=== PATIENT | female | born 1990 | race African-American/Black ===

== ENCOUNTER 2020-10-07 16:20 | Outpatient (CLI) | payer OTHER | END 2020-10-07 21:35 | disposition home or self-care (01) | LOC: RAD 16:20 | PROVIDERS: ATTEND Family Medicine | DX: M25.562 Pain in left knee (principal); W19.XXXA Unspecified fall, initial encounter ==

== ENCOUNTER 2021-01-20 10:36 | Outpatient (CLI) | payer OTHER | END 2021-01-20 23:32 | disposition home or self-care (01) | LOC: LAB 10:36 | PROVIDERS: ATTEND Family Medicine | DX: U07.1 COVID-19 (principal); R05 Cough; R50.9 Fever, unspecified; R11.2 Nausea with vomiting, unspecified; Z11.52 Encounter for screening for COVID-19 | CPT/HCPCS: 87635; G2023; U0003 ==

== ENCOUNTER 2021-01-21 20:35 | Emergency (ER) | payer OTHER ==
[~2021-01-21] VITALS: Ht 160 cm; Wt 72.6 kg
[2021-01-21 20:48] VITALS: TEMP 98.9
[2021-01-21 22:06] LABS: PLATELET COUNT 183 K/uL (152-353)
[2021-01-21 22:11] LABS: POTASSIUM 3.7 mmol/L (3.6-5.2); SODIUM 138 mmol/L (136-145)
[2021-01-21 22:26] LABS: PARTIAL THROMBOPLASTIN TIME 30.5 SECONDS (24.5-33.6)
[2021-01-22 01:52] VITALS: BP 118/75
== END 2021-01-22 01:52 | disposition home or self-care (01) ==
LOC: ED 20:35
PROVIDERS: Emergency Medicine
DX: U07.1 COVID-19 (principal)
CPT/HCPCS: 36415; 80053; 82550; 83605; 84484; 85027; 85379; 85610; 85730; 87040; 87077; 87185; 87186; 87205; 93005; 96360; 96374; 96375; 99284; J1170; J2405